=== PATIENT | female | born 2000 | race African-American/Black ===

== ENCOUNTER 2024-07-11 15:42 | Outpatient (CLI) | payer MEDICAID, SELFPAY ==
[2024-07-11 15:44] VITALS: BMI 26.2
[2024-07-11 15:56] VITALS: BP 110/64; PULSE 83
[2024-07-11 16:11] VITALS: BP 117/60; PULSE 82
[2024-07-11] MEDS: lactated ringers 1,000 ML 150 ML IV (16:20)
[2024-07-11 16:27] VITALS: BP 114/58; PULSE 86
[2024-07-11] MEDS: NIFEdipine ER (24 hr) 30 mg Tablet PO (16:32)
[2024-07-11 16:41] VITALS: BP 115/61; PULSE 87
[2024-07-11 17:11] VITALS: BP 119/65; PULSE 81
== END 2024-07-11 17:17 | disposition home or self-care (01) ==
LOC: OPOB 15:42 → OBGYN 15:43
PROVIDERS: Visit Provider Obstetrics & Gynecology
DX: O26.899 Other specified pregnancy related conditions, unspecified trimester (principal); Z3A.00 Weeks of gestation of pregnancy not specified; W19.XXXA Unspecified fall, initial encounter
CPT/HCPCS: 36415; 59025; 99211; J7120; J9999